=== PATIENT | male | born 1960 | race African-American/Black ===

== ENCOUNTER 2021-11-30 09:59 | Emergency (ER) | payer OTHER, MEDICARE ==
[2021-11-30] MEDS ORDERED: HYDROcodone/Acetaminophen 5/325 mg Tablet ONE (11:02)
== END 2021-11-30 12:42 | disposition home or self-care (01) ==
LOC: CSHERS 09:59
DX: S62.336A Displaced fracture of neck of fifth metacarpal bone, right hand, initial encounter for closed fracture (principal); S63.391A Traumatic rupture of other ligament of right wrist, initial encounter; M19.041 Primary osteoarthritis, right hand; I10 Essential (primary) hypertension; F17.210 Nicotine dependence, cigarettes, uncomplicated; W01.0XXA Fall on same level from slipping, tripping and stumbling without subsequent striking against object, initial encounter
CPT/HCPCS: 26600

== ENCOUNTER 2022-01-29 20:26 | Inpatient (IN) | payer MEDICARE ==
[~2022-01-29 20:26] MED LIST: Albuterol Sulfate 2.5 mg/3 ml Neb ONE
[2022-01-29] MEDS ORDERED: methylPREDNISolone Sod Succ/PF 125 MG/2 ML VIAL ONE (20:31)
[2022-01-29 20:53] LABS: #Eosinphils 0.1 10x3/uL (0.0-0.5); #Monocytes 0.7 10x3/uL (0.0-1.1); #Neutrophils 9.8 10x3/uL (1.5-8.4); %Basophils 0.3 % (0.0-2.0); %Eosinophils 0.7 % (0.0-6.0); %Lymphocytes 10.6 % (18.0-47.0); %Monocytes 6.1 % (0.0-10.0); %Neutrophils 81.9 % (40.0-75.0); Hemoglobin 15.1 g/dL (13.5-17.5); Mean Corpuscular Volume 88.3 fl (81.2-95.1); Mean Platelet Volume 10.1 fl (7.4-10.4); Platelet Count 325 10x3/uL (150-450); Red Blood Cell (RBC) Count 5.03 10x6/uL (4.32-5.72)
[2022-01-29 21:09] LABS: ALT (SGPT) 49 U/L (8-55); AST (SGOT) 44 U/L (5-34); Albumin 4.3 g/dL (3.4-4.8); Alkaline Phosphatase 49 U/L (40-110); Anion Gap 16 mmol/L (10-20); BUN (Urea Nitrogen) 16 mg/dL (8.4-25.7); Bilirubin, Total 0.6 mg/dL (0.2-1.2); Calc. Creatinine Clearance 0 mL/min (70-130); Calcium 10.1 mg/dL (7.8-10.44); Carbon Dioxide 26 mmol/L (23-31); Chloride 101 mmol/L (98-107); Estimated GFR 88; Glucose 116 mg/dL (80-115); Potassium 3.7 mmol/L (3.5-5.1); Protein, Total 7.3 g/dL (5.8-8.1); Sodium 139 mmol/L (136-145)
[2022-01-29] MEDS ORDERED: Albuterol Sulfate 2.5 mg/3 ml Neb ONE ×3 (21:12→21:15)
[2022-01-29 21:47] LABS: SARS-CoV-2 NAA Rapid Test Not Detected (NotDetected)
[2022-01-29] MEDS ORDERED: Oseltamivir 75 MG CAP PO SCH (22:45)
[2022-01-30] MEDS ORDERED: Senokot S 8.6-50 MG TAB PO PRN (03:28)
[2022-01-30] MEDS ORDERED: Calcium Carbonate 500 MG ChewTAB PO PRN (03:28)
[2022-01-30] MEDS ORDERED: Ondansetron PF 4 MG/2 ML Vial IVP PRN (03:28)
[2022-01-30] MEDS ORDERED: Melatonin 3 MG TAB PO PRN (03:28)
[2022-01-30] MEDS ORDERED: Ondansetron ODT 4 MG TAB PO PRN (03:28)
[2022-01-30] MEDS ORDERED: Sodium Chloride 0.45% 1,000 ML IV SCH (03:30)
[2022-01-30 04:25] LABS: #Monocytes 0.2 10x3/uL (0.0-1.1); #Neutrophils 10.5 10x3/uL (1.5-8.4); %Basophils 0.3 % (0.0-2.0); %Monocytes 2.2 % (0.0-10.0); Hemoglobin 14.5 g/dL (13.5-17.5); Mean Corpuscular Volume 88.4 fl (81.2-95.1); Mean Platelet Volume 9.8 fl (7.4-10.4); Platelet Count 297 10x3/uL (150-450); RBC Distribution Width 14.9 % (11.5-14.5); Red Blood Cell (RBC) Count 4.83 10x6/uL (4.32-5.72)
[2022-01-30 04:36] LABS: Anion Gap 15 mmol/L (10-20); BUN (Urea Nitrogen) 14 mg/dL (8.4-25.7); Calc. Creatinine Clearance 0 mL/min (70-130); Calcium 9.9 mg/dL (7.8-10.44); Carbon Dioxide 24 mmol/L (23-31); Chloride 102 mmol/L (98-107); Estimated GFR 98; Glucose 183 mg/dL (80-115); Magnesium 1.8 mg/dL (1.6-2.6); Sodium 137 mmol/L (136-145)
[2022-01-30] MEDS ORDERED: methylPREDNISolone Sod Succ 40 MG VIAL ONE ×2 (04:49→11:06)
[2022-01-30] MEDS: methylPREDNISolone Sod Succ 40 MG VIAL IVP SCH ×4 (05:39→23:42)
[2022-01-30] MEDS ORDERED: Budesonide 0.5 MG/2 ML NEB ONE (08:29)
[2022-01-30] MEDS: Budesonide 0.5 MG/2 ML NEB NEB SCH ×2 (08:41→20:12)
[2022-01-30] MEDS: Arformoterol 15 MCG/2 ML NEB NEB SCH ×2 (08:50→20:20)
[2022-01-30] MEDS ORDERED: Lisinopril/Hydrochlorothiazide 20 mg/12.5 mg Tablet PO SCH (09:00)
[2022-01-30] MEDS ORDERED: Metoprolol Tartrate 25 MG TAB ONE (09:02)
[2022-01-30] MEDS ORDERED: Nicotine 14 MG PATCH ONE (09:02)
[2022-01-30] MEDS ORDERED: Amlodipine 5 MG TAB ONE (09:03)
[2022-01-30] MEDS ORDERED: Enoxaparin Sodium 40 MG/0.4 ML SYRINGE ONE (09:03)
[2022-01-30] MEDS: Amlodipine 10 MG TAB PO SCH (09:31)
[2022-01-30] MEDS: guaiFENesin ER 600 MG TAB PO SCH ×2 (09:31→21:31)
[2022-01-30] MEDS: Enoxaparin Sodium 40 MG/0.4 ML SYRINGE SC SCH (09:31)
[2022-01-30] MEDS: Oseltamivir 75 MG CAP PO SCH ×2 (09:32→21:31)
[2022-01-30] MEDS: Nicotine 14 MG PATCH TD SCH (09:32)
[2022-01-30] MEDS: Metoprolol Tartrate 25 MG TAB PO SCH ×2 (09:32→21:32)
[2022-01-30] MEDS: Hydrochlorothiazide 25 MG TAB PO SCH ×2 (09:32→21:31)
[2022-01-30] MEDS: Lisinopril 20 MG TAB PO SCH ×2 (09:32→21:32)
[2022-01-30] MEDS: Acetaminophen 325 MG TAB PO PRN ×2 (10:59→21:30)
[2022-01-30] MEDS ORDERED: Acetaminophen 500 MG TAB ONE (11:02)
[2022-01-30 14:30] VITALS: BMI 20.5
[2022-01-30] MEDS: Sodium Chloride 0.45% 1,000 ML IV SCH (14:44)
[2022-01-30] MEDS: Mometasone 100 MCG/PUFF (1 INHALER) INH SCH (20:09)
[2022-01-30] MEDS: Montelukast Sodium 10 mg Tablet PO SCH (21:20)
[2022-01-30] MEDS: Atorvastatin Calcium 40 MG TAB PO SCH (21:30)
[2022-01-31 04:38] LABS: #Monocytes 0.5 10x3/uL (0.0-1.1); #Neutrophils 6.2 10x3/uL (1.5-8.4); %Basophils 0.1 % (0.0-2.0); %Lymphocytes 5.4 % (18.0-47.0); %Monocytes 7.5 % (0.0-10.0); %Neutrophils 86.6 % (40.0-75.0); Hemoglobin 14.5 g/dL (13.5-17.5); Mean Corpuscular HGB CONC 33.8 g/dL (32.0-36.0); Mean Corpuscular Hemoglobin 30.1 pg (27.0-33.0); Platelet Count 292 10x3/uL (150-450); RBC Distribution Width 15.1 % (11.5-14.5); Red Blood Cell (RBC) Count 4.82 10x6/uL (4.32-5.72); White Blood Cell (WBC) Count 7.2 10x3/uL (3.5-10.5)
[2022-01-31] MEDS: Acetaminophen 325 MG TAB PO PRN (05:20)
[2022-01-31] MEDS: methylPREDNISolone Sod Succ 40 MG VIAL IVP SCH ×3 (05:20→19:11)
[2022-01-31 05:24] LABS: ALT (SGPT) 40 U/L (8-55); AST (SGOT) 39 U/L (5-34); Albumin 3.7 g/dL (3.4-4.8); Alkaline Phosphatase 48 U/L (40-110); Anion Gap 14 mmol/L (10-20); BUN (Urea Nitrogen) 14 mg/dL (8.4-25.7); Bilirubin, Total 0.3 mg/dL (0.2-1.2); Calc. Creatinine Clearance 96 mL/min (70-130); Calcium 9.5 mg/dL (7.8-10.44); Carbon Dioxide 27 mmol/L (23-31); Chloride 101 mmol/L (98-107); Estimated GFR 100; Globulin 2.6 g/dL (2.4-3.5); Glucose 181 mg/dL (80-115); Magnesium 2.1 mg/dL (1.6-2.6); Phosphorus 2.8 mg/dL (2.3-4.7); Potassium 4.2 mmol/L (3.5-5.1); Protein, Total 6.3 g/dL (5.8-8.1); Sodium 138 mmol/L (136-145)
[2022-01-31] MEDS: Sodium Chloride 0.45% 1,000 ML IV SCH (08:00)
[2022-01-31] MEDS: Lisinopril 20 MG TAB PO SCH ×2 (08:03→20:48)
[2022-01-31] MEDS: Enoxaparin Sodium 40 MG/0.4 ML SYRINGE SC SCH (08:03)
[2022-01-31] MEDS: Oseltamivir 75 MG CAP PO SCH ×2 (08:03→20:47)
[2022-01-31] MEDS: Amlodipine 10 MG TAB PO SCH (08:03)
[2022-01-31] MEDS: guaiFENesin ER 600 MG TAB PO SCH ×2 (08:04→20:46)
[2022-01-31] MEDS: Hydrochlorothiazide 25 MG TAB PO SCH ×2 (08:04→20:48)
[2022-01-31] MEDS: Metoprolol Tartrate 25 MG TAB PO SCH ×2 (08:04→20:48)
[2022-01-31] MEDS: Arformoterol 15 MCG/2 ML NEB NEB SCH ×2 (09:35→20:28)
[2022-01-31] MEDS: Mometasone 100 MCG/PUFF (1 INHALER) INH SCH (09:37)
[2022-01-31] MEDS: Budesonide 0.5 MG/2 ML NEB NEB SCH ×2 (09:40→20:24)
[2022-01-31] MEDS: Nicotine 14 MG PATCH TD SCH (12:32)
[2022-01-31] MEDS: Atorvastatin Calcium 40 MG TAB PO SCH ×2 (20:45→20:46)
[2022-01-31] MEDS: Montelukast Sodium 10 mg Tablet PO SCH (20:48)
[2022-02-01] MEDS: Sodium Chloride 0.45% 1,000 ML IV SCH (00:08)
[2022-02-01] MEDS: methylPREDNISolone Sod Succ 40 MG VIAL IVP SCH ×4 (00:08→19:30)
[2022-02-01] MEDS: Mometasone 100 MCG/PUFF (1 INHALER) INH SCH ×3 (00:22→20:43)
[2022-02-01] MEDS: Arformoterol 15 MCG/2 ML NEB NEB SCH ×2 (07:00→19:58)
[2022-02-01] MEDS: Budesonide 0.5 MG/2 ML NEB NEB SCH ×2 (07:06→19:39)
[2022-02-01] MEDS: Enoxaparin Sodium 40 MG/0.4 ML SYRINGE SC SCH (09:32)
[2022-02-01] MEDS: Amlodipine 10 MG TAB PO SCH (09:32)
[2022-02-01] MEDS: Oseltamivir 75 MG CAP PO SCH ×2 (09:32→22:15)
[2022-02-01] MEDS: guaiFENesin ER 600 MG TAB PO SCH ×2 (09:32→22:15)
[2022-02-01] MEDS: Hydrochlorothiazide 25 MG TAB PO SCH ×2 (09:33→22:14)
[2022-02-01] MEDS: Lisinopril 20 MG TAB PO SCH ×2 (09:34→22:14)
[2022-02-01] MEDS: Metoprolol Tartrate 25 MG TAB PO SCH ×2 (09:34→22:15)
[2022-02-01] MEDS: Nicotine 14 MG PATCH TD SCH (09:35)
[2022-02-01] MEDS: Montelukast Sodium 10 mg Tablet PO SCH (22:15)
[2022-02-01] MEDS: Atorvastatin Calcium 40 MG TAB PO SCH (22:17)
[2022-02-02] MEDS: methylPREDNISolone Sod Succ 40 MG VIAL IVP SCH ×2 (00:01→05:40)
[2022-02-02] MEDS: Sodium Chloride 0.45% 1,000 ML IV SCH ×2 (00:03→20:45)
[2022-02-02] MEDS: Arformoterol 15 MCG/2 ML NEB NEB SCH ×2 (06:45→20:31)
[2022-02-02] MEDS: Budesonide 0.5 MG/2 ML NEB NEB SCH ×2 (06:50→20:15)
[2022-02-02] MEDS: Mometasone 100 MCG/PUFF (1 INHALER) INH SCH ×2 (07:05→20:34)
[2022-02-02] MEDS: Amlodipine 10 MG TAB PO SCH (08:48)
[2022-02-02] MEDS: Lisinopril 20 MG TAB PO SCH ×2 (08:48→20:36)
[2022-02-02] MEDS: Nicotine 14 MG PATCH TD SCH (08:48)
[2022-02-02] MEDS: Oseltamivir 75 MG CAP PO SCH ×2 (08:49→20:36)
[2022-02-02] MEDS: Metoprolol Tartrate 25 MG TAB PO SCH ×2 (08:49→20:35)
[2022-02-02] MEDS: Enoxaparin Sodium 40 MG/0.4 ML SYRINGE SC SCH (08:50)
[2022-02-02] MEDS: predniSONE 20 MG TAB PO SCH (08:50)
[2022-02-02] MEDS: Hydrochlorothiazide 25 MG TAB PO SCH ×2 (08:50→20:35)
[2022-02-02] MEDS: Acetaminophen 325 MG TAB PO PRN (08:51)
[2022-02-02] MEDS: guaiFENesin ER 600 MG TAB PO SCH ×2 (08:51→20:35)
[2022-02-02] MEDS ORDERED: Azithromycin 250 MG TAB PO SCH (11:00)
[2022-02-02] MEDS: (Roflumilast [Daliresp] 500 MCG Tablet) PO SCH ×3 (16:33→16:35)
[2022-02-02] MEDS: Montelukast Sodium 10 mg Tablet PO SCH (20:35)
[2022-02-02] MEDS: Atorvastatin Calcium 40 MG TAB PO SCH (20:36)
[2022-02-03 05:17] LABS: Anion Gap 11 mmol/L (10-20); BUN (Urea Nitrogen) 15 mg/dL (8.4-25.7); Calc. Creatinine Clearance 98 mL/min (70-130); Calcium 9.7 mg/dL (7.8-10.44); Carbon Dioxide 36 mmol/L (23-31); Chloride 96 mmol/L (98-107); Estimated GFR 100; Glucose 158 mg/dL (80-115); Potassium 3.9 mmol/L (3.5-5.1); Sodium 139 mmol/L (136-145)
[2022-02-03] MEDS: Budesonide 0.5 MG/2 ML NEB NEB SCH (06:45)
[2022-02-03] MEDS: Arformoterol 15 MCG/2 ML NEB NEB SCH (06:50)
[2022-02-03] MEDS: Mometasone 100 MCG/PUFF (1 INHALER) INH SCH (07:05)
[2022-02-03] MEDS: predniSONE 20 MG TAB PO SCH (08:57)
[2022-02-03] MEDS: guaiFENesin ER 600 MG TAB PO SCH (08:58)
[2022-02-03] MEDS: Amlodipine 10 MG TAB PO SCH (08:59)
[2022-02-03] MEDS: Lisinopril 20 MG TAB PO SCH (08:59)
[2022-02-03] MEDS: Metoprolol Tartrate 25 MG TAB PO SCH (08:59)
[2022-02-03] MEDS ORDERED: Azithromycin 250 MG TAB PO SCH (09:00)
[2022-02-03] MEDS: Hydrochlorothiazide 25 MG TAB PO SCH (09:00)
[2022-02-03] MEDS: Oseltamivir 75 MG CAP PO SCH (09:01)
[2022-02-03] MEDS: Nicotine 14 MG PATCH TD SCH (09:02)
[2022-02-03] MEDS: Enoxaparin Sodium 40 MG/0.4 ML SYRINGE SC SCH (09:02)
[2022-02-03 11:24] VITALS: BP 125/90; TEMP 98.1
== END 2022-02-03 11:44 | disposition home or self-care (01) | DRG 193 ==
LOC: CSHERS 20:26 → CSHERHOLD 01-30 00:52 → CSHTELE 01-30 15:04
PROVIDERS: ADMIT Family Medicine; ATTEND Internal Medicine
DX: J10.00 Influenza due to other identified influenza virus with unspecified type of pneumonia (principal); J96.21 Acute and chronic respiratory failure with hypoxia; J44.1 Chronic obstructive pulmonary disease with (acute) exacerbation; J44.0 Chronic obstructive pulmonary disease with (acute) lower respiratory infection; I10 Essential (primary) hypertension; E78.5 Hyperlipidemia, unspecified; F17.210 Nicotine dependence, cigarettes, uncomplicated; Z20.822 Contact with and (suspected) exposure to COVID-19; Z99.81 Dependence on supplemental oxygen; Z79.51 Long term (current) use of inhaled steroids; Z79.899 Other long term (current) drug therapy; Z82.49 Family history of ischemic heart disease and other diseases of the circulatory system; Z80.1 Family history of malignant neoplasm of trachea, bronchus and lung; Z98.890 Other specified postprocedural states; Z83.6 Family history of other diseases of the respiratory system
CPT/HCPCS: 36415; 71045; 80048; 80053; 83735; 83880; 84100; 84484; 85025; 93005; 94640; 94760; 96374; J1650; J2920; J2930; J7512; J7611; J7620; J7626